=== PATIENT | male | born 1965 | race Caucasian/White ===

== ENCOUNTER 2017-08-01 13:40 | Emergency (ER) | payer OTHER ==
[~2017-08-01] VITALS: Ht 157.5 cm; Wt 67.1 kg
[2017-08-01] MEDS ORDERED: PREDNISONE50 MG PO (14:16)
[2017-08-01] MEDS ORDERED: ACETAMINOPHEN-1 EAC1 PO (14:16)
[2017-08-01] MEDS ORDERED: NAPROSYN500 MG PO (14:16)
[2017-08-01 14:32] VITALS: BP 138/99
== END 2017-08-01 14:33 | disposition home or self-care (01) ==
LOC: M.ERS 13:40
DX: M77.11 Lateral epicondylitis, right elbow (principal); F17.200 Nicotine dependence, unspecified, uncomplicated

== ENCOUNTER 2018-03-19 07:56 | Emergency (ER) | payer OTHER ==
[~2018-03-19] VITALS: Ht 157.5 cm; Wt 73.9 kg
[~2018-03-19 07:56] MED LIST: ACETAMINOPHEN-1 EAC1 PO; NAPROSYN500 MG PO; PREDNISONE50 MG PO
[2018-03-19] MEDS ORDERED: PERCOCET PO (08:01)
[2018-03-19] MEDS ORDERED: XANAX 0.25 MG0.25 MG PO (08:01)
[2018-03-19 08:26] LABS: ABSOLUTE BASOPHILS 0.1 thou/uL (0.0-0.2); ABSOLUTE EOSINOPHILS 0.2 thou/uL (0.0-0.7); ABSOLUTE LYMPHOCYTES 2.1 thou/uL (0.8-5.3); ABSOLUTE MONOCYTES 0.5 thou/uL (0.0-1.2); ABSOLUTE NEUTROPHILS 5.1 thou/uL (1.6-8.1); EOSINOPHILS 2.4 %; HEMATOCRIT 44.1 % (42.0-52.0); HEMOGLOBIN 14.8 gm/dL (14.0-18.0); LYMPHOCYTES 26.5 %; MCH 28.4 pg (26.0-34.0); MCHC 33.7 g/dL (28.0-37.0); MCV 84.4 fL (80.0-100.0); MONOCYTES 6.2 %; MPV 8.9 fl. (7.2-11.1); NUCLEATED RBCS 0 /100WBC; PLATELET COUNT* 214 thou/uL (150-400); POLYS 63.9 %; RBC 5.22 mil/uL (4.50-6.00); RDW-CV 14.6 % (10.5-14.5)
[2018-03-19 09:02] LABS: ALBUMIN 3.6 g/dL (3.4-5.0); ALKALINE PHOSPHATASE 73 U/L (46-116); ANION GAP 7 mmol/L (7-16); BUN 11 mg/dL (7-18); CALCIUM 8.8 mg/dL (8.5-10.1); CHLORIDE 105 mmol/L (98-107); CO2 26 mmol/L (21-32); CREATININE 0.9 mg/dL (0.6-1.3); GLUCOSE 95 mg/dL (70-99); LIPASE 166 U/L (73-393); POTASSIUM 4.3 mmol/L (3.5-5.1); SGOT 24 U/L (15-37); SGPT 30 U/L (30-65); SODIUM 138 mmol/L (136-145); TOTAL BILIRUBIN 0.8 mg/dL (<0.1-1.0); TOTAL PROTEIN 7.4 g/dL (6.4-8.2); TROPONIN-I LEVEL <0.06 ng/mL (<0.06)
[2018-03-19] MEDS ORDERED: ZOFRAN ODT4 MG DISSOLVE (10:25)
[2018-03-19] MEDS ORDERED: BENTYL 20 MG TA20 M1 PO (10:25)
[2018-03-19 10:44] VITALS: BP 133/95
--- NOTE | 2018-03-19 17:02 | EKG ---
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 03/19/18 1701 0822 0822 Michael Pacheco MD, FACC /EPI
== END 2018-03-19 10:30 | disposition home or self-care (01) ==
LOC: M.ERS 07:56
PROVIDERS: Emergency Medicine Emergency Medical Services
DX: R10.84 Generalized abdominal pain (principal); F17.210 Nicotine dependence, cigarettes, uncomplicated

== ENCOUNTER 2018-06-05 13:26 | Emergency (ER) | payer OTHER ==
[~2018-06-05] VITALS: Ht 157.5 cm; Wt 73.9 kg
[~2018-06-05 13:26] MED LIST changes: +BENTYL 20 MG TA20 M1 PO; +PERCOCET PO; +XANAX 0.25 MG0.25 MG PO; +ZOFRAN ODT4 MG DISSOLVE
[2018-06-05] MEDS ORDERED: BLOOD PRESSURE PO (13:32)
[2018-06-05 14:15] LABS: ABSOLUTE BASOPHILS 0.1 thou/uL (0.0-0.2); ABSOLUTE EOSINOPHILS 0.2 thou/uL (0.0-0.7); ABSOLUTE LYMPHOCYTES 1.9 thou/uL (0.8-5.3); ABSOLUTE MONOCYTES 0.5 thou/uL (0.0-1.2); BASOPHILS 1.2 %; EOSINOPHILS 1.8 %; HEMATOCRIT 44.3 % (42.0-52.0); LYMPHOCYTES 21.5 %; MCH 28.9 pg (26.0-34.0); MCHC 33.9 g/dL (28.0-37.0); MCV 85.2 fL (80.0-100.0); NUCLEATED RBCS 0 /100WBC; PLATELET COUNT* 212 thou/uL (150-400); POLYS 69.5 %; RDW-CV 13.7 % (10.5-14.5); WBC 8.7 thou/uL (4.0-11.0)
[2018-06-05 14:21] LABS: ANION GAP 6 mmol/L (7-16); BUN 14 mg/dL (7-18); CALCIUM 8.7 mg/dL (8.5-10.1); CHLORIDE 105 mmol/L (98-107); CO2 26 mmol/L (21-32); CREATININE 0.9 mg/dL (0.6-1.3); GLUCOSE 102 mg/dL (70-99); POTASSIUM 4.3 mmol/L (3.5-5.1); SODIUM 137 mmol/L (136-145)
[2018-06-05 14:23] LABS: APTT 26.6 Seconds (25.0-31.3); PROTIME 10.3 Seconds (9.20-11.50)
[2018-06-05 14:42] LABS: ALBUMIN 3.5 g/dL (3.4-5.0); ALKALINE PHOSPHATASE 80 U/L (46-116); LIPASE 157 U/L (73-393); MAGNESIUM 1.9 mg/dL (1.8-2.4); NT-PRO BRAIN NAT PEPTIDE 9 pg/mL (<300); SGOT 17 U/L (15-37); SGPT 23 U/L (30-65); TOTAL BILIRUBIN 0.9 mg/dL (<0.1-1.0); TOTAL PROTEIN 7.4 g/dL (6.4-8.2); TROPONIN-I LEVEL <0.06 ng/mL (<0.06)
[2018-06-05 15:07] VITALS: BP 133/84
--- NOTE | 2018-06-06 12:12 | EKG ---
[place] [address] ELECTROCARDIOGRAM REPORT Name: JORDAN NORTON [id number]mission: 06/05/18 Attend Phys: Discharge: 06/05/18 Date of : 63 Report #: [id number] THIS REPORT FOR: //name// [facility] ED Test Date: 2018-06-05 Test Time: 13:29:56 Pat Name: JORDAN NORTON Department: Room: Gender: M [employer]: ROLDAN : 1965 Requested By: Jared Mabry Order Number: [id number] MD: Michael Pacheco Measurements Intervals [place] Rate: 76 P: 63 [place]: 141 QRS: 103 QRSD: 100 T: 57 QT: 374 QTc: 421 Interpretive Statements Sinus rhythm Left posterior fascicular block Compared to ECG 03/19/2018 08:22:26 No significant changes Electronically Signed On 06-06-2018 12:12:00 CHIEF INFORMATION SECURITY OFFICER by Michael Pacheco [email or web address] <ELECTRONICALLY SIGNED> By: Michael Pacheco MD, [facility] 06/06/18 1212 1329 1329 Michael Pacheco MD, FACC /EPI
== END 2018-06-05 15:08 ==
LOC: M.ERS 13:26
PROVIDERS: Family Medicine
DX: R07.89 Other chest pain (principal); F17.210 Nicotine dependence, cigarettes, uncomplicated; Z98.890 Other specified postprocedural states

== ENCOUNTER 2018-08-16 13:26 | Emergency (ER) | payer OTHER ==
[~2018-08-16] VITALS: Ht 157.5 cm; Wt 68.0 kg
[~2018-08-16 13:26] MED LIST changes: +BLOOD PRESSURE PO
[2018-08-16 13:43] LABS: URINE BILIRUBIN NEGATIVE (Negative); URINE BLOOD NEGATIVE (Negative); URINE CLARITY CLEAR; URINE COLOR YELLOW; URINE GLUCOSE-RANDOM NEGATIVE (Negative); URINE KETONES NEGATIVE (Negative); URINE LEUKOCYTES-REFLEX NEGATIVE (Negative); URINE NITRITE-REFLEX NEGATIVE (Negative); URINE PROTEIN NEGATIVE (Negative); URINE SPECIFIC GRAVITY 1.025 (1.005-1.030); URINE UROBILINOGEN 0.2 E.U./dl (0.2-1.0)
[2018-08-16 13:52] LABS: ABSOLUTE BASOPHILS 0.1 thou/uL (0.0-0.2); ABSOLUTE EOSINOPHILS 0.1 thou/uL (0.0-0.7); ABSOLUTE LYMPHOCYTES 2.1 thou/uL (0.8-5.3); ABSOLUTE MONOCYTES 0.5 thou/uL (0.0-1.2); ABSOLUTE NEUTROPHILS 6.5 thou/uL (1.6-8.1); BASOPHILS 1.3 %; HEMATOCRIT 46.6 % (42.0-52.0); HEMOGLOBIN 16.1 gm/dL (14.0-18.0); LYMPHOCYTES 22.5 %; MCH 29.5 pg (26.0-34.0); MCHC 34.6 g/dL (28.0-37.0); MCV 85.3 fL (80.0-100.0); MONOCYTES 5.5 %; MPV 8.9 fl. (7.2-11.1); NUCLEATED RBCS 0 /100WBC; PLATELET COUNT* 224 thou/uL (150-400); POLYS 69.7 %; RBC 5.46 mil/uL (4.50-6.00); RDW-CV 13.3 % (10.5-14.5); WBC 9.4 thou/uL (4.0-11.0)
[2018-08-16 14:08] LABS: POTASSIUM 4.2 mmol/L (3.5-5.1); TOTAL BILIRUBIN 0.7 mg/dL (<0.1-1.0); TOTAL PROTEIN 7.8 g/dL (6.4-8.2)
[2018-08-16] MEDS ORDERED: IBUPROFEN 800800 M1 PO (14:22)
[2018-08-16] MEDS ORDERED: ONDANSETRON HCL4 M2 PO (14:22)
[2018-08-16 14:52] VITALS: BP 127/92
== END 2018-08-16 14:52 | disposition left against medical advice (07) ==
LOC: M.ERS 13:26
PROVIDERS: Nurse Practitioner Family
DX: R10.31 Right lower quadrant pain (principal); R30.0 Dysuria; F17.210 Nicotine dependence, cigarettes, uncomplicated